=== PATIENT | male | born 1975 ===

== ENCOUNTER 2018-11-09 09:40 | Emergency (ER) | payer OTHER ==
[2018-11-09 09:47] VITALS: BMI 22.6
[2018-11-09] MEDS ORDERED: Iohexol 240 (50 ml) PO ONE (10:35)
--- NOTE | 2018-11-09 10:39 | ED PDOC ---
HPI: Abdomen Time Seen by Provider: 11/09/18 10:04 Chief Complaint (Nursing): Abdominal Pain Chief Complaint (Provider): LLQ pain History Per: Patient, [employer] (#[id number]) History/Exam Limitations: language barrier Onset/Duration Of Symptoms: Days (several weeks), Waxing/Waning Outside of [place] travel?: No Current Symptoms Are (Timing): Still Present Severity: Mild Location Of Pain/Discomfort: LLQ Quality Of Discomfort: "Pain" Associated Symptoms: Fever, Diarrhea (Pt presents to the ED complaining of LLQ pain and tenderness for the past several weeks. The patient admits that he is a D2M that controls his glucose with medication, but that he has not taken medication for several months. Pt presents afebrile, but indicates that several days prior to presentation he did infact feel feverish and his complaints also extend to body aches and pains. Pt denies other comploaints nad concerns). denies: Nausea, Vomiting, Loss Of Appetite, Back Pain, Constipation Past Medical History Reviewed: Historical Data, Nursing Documentation, Vital Signs Vital Signs: Last Vital Signs Temp 98.6 F 11/09/18 10:25 Pulse 87 11/09/18 09:46 Resp 18 11/09/18 09:46 BP 115/70 11/09/18 09:46 Pulse Ox 99 11/09/18 09:46 - Medical History PMH: Diabetes Denies: Chronic Kidney Disease - Family History Family History: States: Unknown Family Hx - Home Medications Home Medications: Ambulatory Orders Medication Instructions Recorded MetFORMIN [glucoPHAGE] 1 tab PO BID #60 tab 11/09/18 - Allergies Allergies/Adverse Reactions: Allergies Allergy/AdvReac Type Severity Reaction Status Date / Time No Known Allergies Allergy Verified 11/09/18 10:27 Review of Systems ROS Statement: Except As Marked, All Systems Reviewed And Found Negative Constitutional: Positive for: Fever Gastrointestinal: Positive for: Abdominal Pain, Diarrhea. Negative for: Nausea, Vomiting Physical Exam - Reviewed Nursing Documentation Reviewed: Yes Vital Signs Reviewed: Yes - Physical Exam Appears: Positive for: Well, Non-toxic, No Acute Distress. Negative for: Uncomfortable Head Exam: Positive for: ATRAUMATIC, NORMAL INSPECTION Skin: Positive for: Normal Color, Warm, Dry. Negative for: Diaphoresis, Pallor, Rash Eye Exam: Positive for: Normal appearance, PERRL. Negative for: Periorbital swelling, Periorbital tenderness ENT: Positive for: Normal ENT Inspection Neck: Positive for: Normal, Supple Cardiovascular/Chest: Positive for: Regular Rate, Rhythm Respiratory: Positive for: Normal Breath Sounds. Negative for: Stridor, Wheezing, Respiratory Distress Pulses-Carotid (L): 2+ Pulses-Carotid (R): 2+ Pulses-Radial (L): 2+ Pulses-Radial (R): 2+ Gastrointestinal/Abdominal: Positive for: Bowel Sounds (active in all four quadrants), Soft, Tenderness (The brett and rovsing sign are negative as is the psoas sign; there is no positive zacarias sign and no tenderness at mcburney poi nt. The pt does have discrete point tenderness over the LLQ without rebound or guarding). Negative for: Distended, Guarding, Rebound, Asicites - Laboratory Results Result Diagrams: 11/09/18 10:04 11/09/18 12:00 - ECG O2 Sat by Pulse Oximetry: 99 Medical Decision Making Medical Decision Making: I: Abdominal Pain, R/O gastroparesis over diverticulosis over constipation P: CBC CMP BG POC Abdominal CT with contrast UA Elevated blood glucose level (in excess of 500) noted that is coincident with patient indicating that he has not taken either metformin or insulin for several months. Pt is clinically asymptomatic; 10 units of insulin were provided in addition to hydration therapy with results of blood glucose <200 at discharge. A discussion was had with the patient concerning his hyperglycemia and the importance of controlling blood sugars. Pt acknowledged this. On discharge, the patient will be given a rx for metformin 1000mg BID as well as a referral to the [facility] clinic for diabetic control. Elevated ALP noted; no other diagnostics of clinical significance +++++++++++++++++++++++++++++++++++++++++++++++++++++++++ PROCEDURE: CT Abdomen and Pelvis with contrast HISTORY: r/o acute abdomen COMPARISON: None. TECHNIQUE: Intravenous contrast dose: 95 cc Omnipaque 300. Radiation dose: Total exam DLP = 302.95 mGy-cm. This CT exam was performed using one or more of the following dose reduction techniques: Automated exposure control, adjustment of the mA and/or kV according to patient size, and/or use of iterative reconstruction technique. FINDINGS: LOWER THORAX: Unremarkable. LIVER: Hepatic steatosis. No focal masses. No intrahepatic bile duct dilatation or perihepatic ascites. GALLBLADDER AND BILE DUCTS: Distended gallbladder. No gallstones identified. PANCREAS: Unremarkable. No gross lesion or ductal dilatation. SPLEEN: Unremarkable. ADRENALS: Unremarkable. No mass. KIDNEYS AND URETERS: Unremarkable. No hydronephrosis. No solid mass. VASCULATURE: Unremarkable. No aortic aneurysm. No atherosclerotic calcification or mural plaque present. BOWEL: Constipation without fecal impaction or obstruction. APPENDIX: Normal appendix. PERITONEUM: Unremarkable. No free fluid. No free air. LYMPH NODES: Unremarkable. No enlarged lymph nodes. BLADDER: Unremarkable. REPRODUCTIVE: Unremarkable. BONES: No acute fracture. OTHER FINDINGS: None. IMPRESSION: No significant or acute findings to account for/ related to the clinical presentation. Additional benign and/or incidental findings described above. See notes above concerning discharge instructions and details The patient is stable for discharge Disposition - Clinical Impression Clinical Impression: Hyperglycemia without ketosis, Abdominal discomfort - Patient ED Disposition Is Patient to be Admitted: No Doctor Will See Patient In The: Office Counseled Patient/Family Regarding: Studies Performed, Diagnosis, Need For Followup, Rx Given - Disposition Referrals: [facility] [Outside] Disposition: Routine/Home Disposition Time: 16:10 Condition: IMPROVED Additional Instructions: Proceed and contact the [facility] clinic, identified above to assist in control of your hyperglycemia Prescriptions: MetFORMIN [glucoPHAGE] 1 tab PO BID #60 tab Instructions: Blood Glucose Monitoring, Diabetes and Diet, The ABCs of Diabetes, Acute Abdomen (Belly Pain), Adult (DC), Hyperglycemia, Adult (DC) Forms: Kiromic (Polish), Kiromic (Lao) Print Language: MONGOLIAN
[2018-11-09] MEDS ORDERED: Iohexol 240 (50 ml) ONE (10:45)
[2018-11-09] MEDS ORDERED: Insulin Regular 100 units/ml IV STA (11:01)
[2018-11-09] MEDS ORDERED: Insulin Regular 100 units/ml ONE (11:19)
[2018-11-09 11:29] LABS: BASO % 0.7 % (0.0-2.0); EOS # 0.1 K/uL (0.0-0.7); EOS % 1.3 % (0.0-4.0); HEMOGLOBIN 12.2 g/dL (12.0-18.0); LYMPH # 1.3 K/uL (1.0-4.3); LYMPH % 28.1 % (20.0-40.0); MEAN CELL VOLUME 78.5 fl (80.0-94.0); MEAN CORPUSCULAR HEMOGLOBIN 25.1 pg (27.0-31.0); MEAN PLATELET VOLUME 10.6 fl (7.2-11.7); MONO # 0.4 K/uL (0.0-0.8); MONO % 7.6 % (0.0-10.0); NEUT % 62.3 % (50.0-75.0); NRBC % 0.3 % (0.0-0.0); RBC 4.88 Mil/uL (4.40-5.90); RED CELL DISTRIBUTION WIDTH 16.1 % (11.5-14.5); WHITE BLOOD COUNT 4.8 K/uL (4.8-10.8)
[2018-11-09 11:32] LABS: URINE BILIRUBIN NEGATIVE (NEGATIVE); URINE BLOOD NEGATIVE (NEGATIVE); URINE CLARITY CLEAR (Clear); URINE COLOR STRAW (YELLOW); URINE GLUCOSE (UA) >=500 mg/dL (NEGATIVE); URINE LEUKOCYTE ESTERASE NEG Leu/uL (Negative); URINE PROTEIN NEGATIVE (NEGATIVE); URINE UROBILINOGEN 0.2-1.0 mg/dL (0.2-1.0)
[2018-11-09 12:29] LABS: ALB/GLOB RATIO 1.3 (1.0-2.1); ALBUMIN 3.9 g/dL (3.5-5.0); ALT/SGPT 37 U/L (21-72); AST/SGOT 22 U/L (17-59); BLOOD UREA NITROGEN 12 mg/dl (9-20); CALCIUM 9.1 mg/dL (8.4-10.2); GFR NON-AFRICAN AMERICAN > 60
[2018-11-09] MEDS ORDERED: Sodium Chloride 0.9% 1,000 ML IV ONE (12:48)
[2018-11-09] MEDS ORDERED: Sodium Chloride 0.9% 50 ML IV ONE (14:46)
[2018-11-09] MEDS ORDERED: Iohexol 300 100 ML IJ ONE (14:46)
--- NOTE | 2018-11-09 15:38 | CT ---
Date of service: 11/09/2018 PROCEDURE: CT Abdomen and Pelvis with contrast HISTORY: r/o acute abdomen COMPARISON: None. TECHNIQUE: Intravenous contrast dose: 95 cc Omnipaque 300. Radiation dose: Total exam DLP = 302.95 mGy-cm. This CT exam was performed using one or more of the following dose reduction techniques: Automated exposure control, adjustment of the mA and/or kV according to patient size, and/or use of iterative reconstruction technique. FINDINGS: LOWER THORAX: Unremarkable. LIVER: Hepatic steatosis. No focal masses. No intrahepatic bile duct dilatation or perihepatic ascites. GALLBLADDER AND BILE DUCTS: Distended gallbladder. No gallstones identified. PANCREAS: Unremarkable. No gross lesion or ductal dilatation. SPLEEN: Unremarkable. ADRENALS: Unremarkable. No mass. KIDNEYS AND URETERS: Unremarkable. No hydronephrosis. No solid mass. VASCULATURE: Unremarkable. No aortic aneurysm. No atherosclerotic calcification or mural plaque present. BOWEL: Constipation without fecal impaction or obstruction. APPENDIX: Normal appendix. PERITONEUM: Unremarkable. No free fluid. No free air. LYMPH NODES: Unremarkable. No enlarged lymph nodes. BLADDER: Unremarkable. REPRODUCTIVE: Unremarkable. BONES: No acute fracture. OTHER FINDINGS: None. IMPRESSION: No significant or acute findings to account for/ related to the clinical presentation. Additional benign and/or incidental findings described above.
[2018-11-09 16:51] VITALS: BP 109/71; PULSE 80; RESP 19; TEMP 98.5; O2SAT 100
== END 2018-11-09 16:52 | disposition home or self-care (01) ==
LOC: H.ER 09:40
DX: E11.65 Type 2 diabetes mellitus with hyperglycemia (principal); Z79.4 Long term (current) use of insulin; R10.32 Left lower quadrant pain
CPT/HCPCS: 74177; 80053; 81003; 82948; 85025; 87086; 87804; 99285; J7030; Q9966; Q9967